=== PATIENT | female | born 1960 | race Caucasian/White ===

== ENCOUNTER → 2017-01-01 | Outpatient (CLI) | payer BC ==
--- NOTE | 2017-01-01 15:06 | CT ---
EXAM DESCRIPTION: CT abdomen and pelvis without contrast CLINICAL HISTORY: Abdomen pain COMPARISON: None Available. TECHNIQUE: Noncontrast spiral CT with coronal and sagittal reformatted images. This exam was performed according to our departmental dose-optimization program, which includes automated exposure control, adjustment of the mA and/or kV according to patient size and/or use of iterative reconstruction technique. FINDINGS: Visualized lung bases are clear. Heart size is normal No abnormality of the liver or gallbladder. No biliary duct dilation Spleen, pancreas, and adrenal glands are normal 1 to 2 mm nonobstructing calculus lower pole right kidney. No other renal, ureteral, or bladder calculus. Numerous phleboliths in the pelvis. No pelvic soft tissue mass lesion, adenopathy or free fluid. Moderate amount of stool in the colon. No mass lesion or diagnostic inflammatory process seen in the stomach, small or large intestine Omentum, small bowel mesentery and retroperitoneum show no mass or adenopathy No acute bony abnormality. IMPRESSION: No mass or adenopathy in the abdomen or pelvis 1-2 mm nonobstructing calculus lower pole right kidney. No other renal stone disease No diagnostic inflammatory process seen in the abdomen or pelvis Electronically signed by: Khoi Estes MD 01/01/2017 3:05 PM CDT
== END | disposition home or self-care (01) ==
LOC: CT 09:30
PROVIDERS: ATTEND Family Medicine
DX: R10.84 Generalized abdominal pain (principal)

== ENCOUNTER → 2017-02-05 | Outpatient (CLI) | payer BC | END | disposition home or self-care (01) | LOC: GMAH 16:27 | PROVIDERS: ATTEND Family Medicine | DX: N30.00 Acute cystitis without hematuria (principal) ==

== ENCOUNTER → 2017-08-11 | Outpatient (CLI) | payer BC, OTHER, SELFPAY ==
--- NOTE | 2017-08-12 12:14 | CT ---
EXAM DESCRIPTION: Abdoment/Pelvis w/o Contrast: Computed Tomography. CLINICAL HISTORY: GENERALIZED ABD PN COMPARISON: CT abdomen and pelvis 01/01/2017. TECHNIQUE: Spiral-axial scans 5.0 mm intervals through the abdomen and pelvis without oral or IV contrast. Coronal and sagittal 2.0 mm reconstructions. Total Exam DLP: 410.94 mGy-cm. This exam was performed according to our departmental CT dose-optimization program which includes automated exposure control, adjustment of the mA and/or kV according to patient size and/or use of iterative reconstruction technique; to reduce radiation dose to as low as reasonably achievable (ALARA). FINDINGS: Lung bases and pleura: Negative. Liver, stomach, spleen, and adrenal glands: Evaluation of soft tissue structures is limited due to lack of IV contrast. Long axis right lobe liver 22.7 cm. Normal density. Stomach unremarkable. Other solid organs negative. Pancreas, Gallbladder, and Ducts: Gallbladder visualized. Heterogeneous internal density. No duct dilation. Pancreas displaced inferiorly by liver no gross abnormalities. Kidneys and Ureters: Unremarkable except for inferior displacement of the right kidney by the enlarged liver. Mesentery: Generalized increased density in the mid to lower peritoneal cavity. No free fluid or free air. Aorta: Normal outer caliber. Small Bowel: Intermittent segments of fluid and gas but no significant air-fluid levels. Terminal Ileum/Cecum: Normal caliber of the TI with fecal matter causing minimal cecal distention. Appendix not seen. Minimal increased mesenteric density as described above. Colon: Intermittent gas and fecal material with multiple diverticula in the sigmoid colon which is moderately redundant. Also increased density of fat around the inferior sigmoid colon, in the region of the posterior pelvis posterior and superior to the urinary bladder. Pelvic Organs: Vaginal cuff negative. Multiple calcifications. Distention of the urinary bladder with no radiodense stones. No significant amount of fluid in the cul-de-sac. Spine and Bony Pelvis: Spondylosis L1-2 and canal narrowing. No bone destruction. Subchondral cysts in the inferior left SI joint. Abdominal Wall/Back Soft Tissues: Negative. IMPRESSION: 1. Sigmoid is very redundant with diverticulosis. Because of increased density of the fat around the distal sigmoid, posterior and superior to urinary bladder, diverticulitis is suspected, though this would be an unusual location (coronal sequence 602, images 91-101; sagittal sequence 601: Images 93-106). The mesentery was less dense on the prior study. Vague increased density in the mesentery in the peritoneum of the abdomen and upper pelvis and around the distal sigmoid colon above the cul-de-sac. This could indicate a nonspecific small bowel or colonic inflammatory process, or be normal for this patient. Mesentery seen slightly less dense on the prior study. No small bowel obstruction. No free intraperitoneal air or free fluid. Consider follow-up study with IV and oral contrast if these findings are discordant with clinical findings. 2. Heterogeneous density in the gallbladder could represent stones or sludge. If hepatobiliary function is questionable, consider right upper quadrant abdominal ultrasound. In addition, hepatomegaly which is stable since the prior study. 3. Small right renal calculus seen on the prior study is no longer visualized. 4. 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 Electronically signed by: Alan Pham MD 08/12/2017 12:13 PM CDT
== END ==
LOC: CT 13:26
PROVIDERS: ATTEND Family Medicine
DX: R10.84 Generalized abdominal pain (principal); K57.30 Diverticulosis of large intestine without perforation or abscess without bleeding

== ENCOUNTER 2017-08-18 11:20 | Inpatient (IN) | payer SELFPAY ==
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
[2017-08-18] MEDS ORDERED: SODIUM CHLORIDE 0.9% (FLUSH) 10 ML SYG IV PRN (12:22)
[2017-08-18] MEDS ORDERED: IV SET AND CAP CHANGE INJ INJ SCH (12:30)
[2017-08-18] MEDS ORDERED: metroNIDAZOLE IV PREMIX 500MG 100 ML IVPB ONE ×3 (13:03→19:20)
[2017-08-18] MEDS: metroNIDAZOLE IV PREMIX 500MG 500 MG in PREMIX BAG 1 BAG IVPB SCH ×2 (13:27→19:52)
[2017-08-18] MEDS: SODIUM CHLORIDE 0.9% 1000ML 1,000 ML IVS PRN (13:27)
[2017-08-18] MEDS ORDERED: PIPERACILLIN/TAZOBACTAM 3.375 GM in SODIUM CHLORIDE 0.9% 100ML 100 ML IVPB SCH (13:30)
[2017-08-18] MEDS ORDERED: ONDANSETRON INJ 4 MG/2 ML VIAL ONE (13:35)
[2017-08-18] MEDS: ONDANSETRON INJ 4 MG/2 ML VIAL IV PRN ×2 (13:43→19:51)
[2017-08-18] MEDS ORDERED: PIPERACILLIN/TAZOBACTAM 3.375 GM VIAL IVPB ONE ×3 (14:53→19:21)
[2017-08-18] MEDS ORDERED: SODIUM CHLORIDE 0.9% 100ML 100 ML IVPB ONE ×3 (14:53→19:21)
[2017-08-18] MEDS: PIPERACILLIN/TAZOBACTAM 3.375 GM in SODIUM CHLORIDE 0.9% 100ML 100 ML IVPB SCH ×2 (14:59→21:01)
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
[2017-08-18] MEDS ORDERED: fentaNYL CITRATE INJ 50 MCG/ML AMP IV ONE (19:41)
[2017-08-18] MEDS ORDERED: fentaNYL CITRATE INJ 50 MCG/ML AMP ONE (19:42)
[2017-08-19] MEDS: SODIUM CHLORIDE 0.9% 1000ML 1,000 ML IVS PRN ×2 (02:16→17:54)
[2017-08-19] MEDS: PIPERACILLIN/TAZOBACTAM 3.375 GM in SODIUM CHLORIDE 0.9% 100ML 100 ML IVPB SCH ×4 (02:16→21:06)
[2017-08-19] MEDS: fentaNYL CITRATE INJ 50 MCG/ML AMP IV PRN ×2 (03:39→21:06)
[2017-08-19] MEDS: metroNIDAZOLE IV PREMIX 500MG 500 MG in PREMIX BAG 1 BAG IVPB SCH ×3 (04:10→19:56)
[2017-08-19] MEDS: ONDANSETRON INJ 4 MG/2 ML VIAL IV PRN (04:17)
--- NOTE | 2017-08-19 07:02 | RAD ---
CLINICAL HISTORY:fever. :1960. Sex:Female. TECHNIQUE: Supine and upright views of the abdomen. There is no intestinal dilatation. There is no mass. There is no free air. There is no opaque calculus. Multiple phleboliths are noted within the pelvis. Skeletal structures are unremarkable. The visible lung bases are clear IMPRESSION: 1. No acute radiographic findings.. Electronically signed by: Miguel Vidales MD 08/19/2017 6:59 AM CDT Workstation: [id number]
--- NOTE | 2017-08-19 07:02 | RAD ---
EXAM: Single view chest. INDICATION: Fever. COMPARISON: Chest x-ray: None. FINDINGS: Cardiac silhouette: Unremarkable. Binta: Unremarkable. Lobar consolidation: None. Pleural effusion: None. Pneumothorax: None. Other: None. Bones: Unremarkable. Other: None. IMPRESSION: 1. No acute cardiopulmonary process. Electronically signed by: Miguel Vidales MD 08/19/2017 6:59 AM CDT Workstation: [id number]
[2017-08-19] MEDS ORDERED: PIPERACILLIN/TAZOBACTAM 3.375 GM VIAL IVPB ONE ×4 (07:47→19:12)
[2017-08-19] MEDS ORDERED: SODIUM CHLORIDE 0.9% 100ML 100 ML IVPB ONE ×4 (07:48→19:12)
[2017-08-19] MEDS ORDERED: metroNIDAZOLE IV PREMIX 500MG 100 ML IVPB ONE ×3 (07:48→19:12)
[2017-08-19] MEDS ORDERED: MAGNESIUM HYDROXIDE 30 ML UD PO ONE (09:07)
[2017-08-19] MEDS ORDERED: PROMETHAZINE HCL INJ 25 MG/ML VIAL ONE (09:24)
[2017-08-19] MEDS ORDERED: SODIUM CHLORIDE 0.9% 50ML 50 ML ONE (09:24)
[2017-08-19] MEDS: PROMETHAZINE HCL INJ 12.5 MG in SODIUM CHLORIDE 0.9% 50ML 50 ML IVPB PRN (09:30)
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
[2017-08-20] MEDS ORDERED: SODIUM CHLORIDE 0.9% 50ML 50 ML ONE (00:47)
[2017-08-20] MEDS ORDERED: PROMETHAZINE HCL INJ 25 MG/ML VIAL ONE (00:47)
[2017-08-20] MEDS: PROMETHAZINE HCL INJ 12.5 MG in SODIUM CHLORIDE 0.9% 50ML 50 ML IVPB PRN (00:50)
[2017-08-20] MEDS: PIPERACILLIN/TAZOBACTAM 3.375 GM in SODIUM CHLORIDE 0.9% 100ML 100 ML IVPB SCH ×4 (02:19→20:58)
[2017-08-20] MEDS ORDERED: SODIUM CHLORIDE 0.9% 100ML 100 ML IVPB ONE ×4 (02:22→19:14)
[2017-08-20] MEDS ORDERED: PIPERACILLIN/TAZOBACTAM 3.375 GM VIAL IVPB ONE ×4 (02:22→19:14)
[2017-08-20] MEDS: metroNIDAZOLE IV PREMIX 500MG 500 MG in PREMIX BAG 1 BAG IVPB SCH ×3 (04:00→19:56)
[2017-08-20] MEDS: fentaNYL CITRATE INJ 50 MCG/ML AMP IV PRN (05:27)
[2017-08-20] MEDS: ONDANSETRON INJ 4 MG/2 ML VIAL IV PRN (08:30)
[2017-08-20] MEDS ORDERED: SODIUM CHLORIDE 0.9% 1000ML 1,000 ML ONE (09:08)
[2017-08-20] MEDS: SODIUM CHLORIDE 0.9% 1000ML 1,000 ML IVS PRN (09:16)
--- NOTE | 2017-08-20 13:25 | PN ---
SUPERVISING PHYSICIAN: Wilber Nieto MD DATE: 08/20/17 SUBJECTIVE: Ms. Salinas complains of increased pain today. She got a dose of Milk of Magnesia and actually had a bowel movement, but states she is feeling increased pain in the left lower quadrant. No significant nausea or vomiting. OBJECTIVE: VITAL SIGNS: Blood pressure 111/71. Heart rate 74. Respiratory rate 18. Temperature 98.6. O2 saturation 99%. GENERAL: Ms. Salinas is a 56-year-old female is not in any current distress and at this time. NEUROLOGIC: Alert and oriented. LUNGS: Clear to auscultation bilaterally. CARDIOVASCULAR: Regular rate and rhythm. Normal S1, S2. ABDOMEN: Still soft. Positive bowel sounds. She complains of left lower quadrant tender to palpation. GENITOURINARY: Deferred. EXTREMITIES: Lower extremities with no edema. Capillary refill is less than 2 seconds. LABORATORY: Normal white count. Hemoglobin 12.5. Chemistry pretty much unremarkable. ASSESSMENT: 1. Left lower quadrant abdominal pain with presumed diverticulitis. 2. History of irritable bowel syndrome. 3. Migraine. 4. Possible constipation. PLAN: Her migraine is improved since yesterday. Concern with the worsening left lower quadrant pain. Dr. Billingsley has evaluated the patient as well and he is ordering more Milk of Magnesia as well as MiraLAX. We will continue her antibiotics for now. At this point, I am going to stop her intravenous fluids because she is taking liquid diet well. I am not going to order any repeat labs because she has consistently had normal chemistry as well as CBC since admission. We will reexamine tomorrow and continue to discuss with Dr. Billingsley on further action. #[id number] [facility]
[2017-08-20] MEDS ORDERED: metroNIDAZOLE IV PREMIX 500MG 100 ML IVPB ONE ×3 (13:26→19:13)
[2017-08-20] MEDS ORDERED: MAGNESIUM HYDROXIDE 30 ML UD ONE (13:28)
[2017-08-20] MEDS: MAGNESIUM HYDROXIDE 30 ML UD PO ONE ×3 (13:32→16:27)
[2017-08-20] MEDS: POLYETHYLENE GLYCOL 3350 17 GM PCKT PO SCH ×3 (13:32→20:58)
[2017-08-20] MEDS: KETOROLAC TROMETHAMINE INJ 30 MG/ML VIAL IV SCH (17:15)
[2017-08-21] MEDS ORDERED: SODIUM CHLORIDE 0.9% 1000ML 1,000 ML ONE (00:44)
[2017-08-21] MEDS: KETOROLAC TROMETHAMINE INJ 30 MG/ML VIAL IV SCH ×2 (01:03→09:13)
[2017-08-21] MEDS: PIPERACILLIN/TAZOBACTAM 3.375 GM in SODIUM CHLORIDE 0.9% 100ML 100 ML IVPB SCH ×2 (02:03→08:24)
[2017-08-21] MEDS ORDERED: PROMETHAZINE HCL INJ 25 MG/ML VIAL ONE (03:15)
[2017-08-21] MEDS ORDERED: SODIUM CHLORIDE 0.9% 50ML 50 ML ONE (03:15)
[2017-08-21] MEDS: PROMETHAZINE HCL INJ 12.5 MG in SODIUM CHLORIDE 0.9% 50ML 50 ML IVPB PRN (03:19)
[2017-08-21] MEDS: metroNIDAZOLE IV PREMIX 500MG 500 MG in PREMIX BAG 1 BAG IVPB SCH (04:50)
[2017-08-21] MEDS ORDERED: metroNIDAZOLE IV PREMIX 500MG 0 ML IVPB ONE (07:47)
[2017-08-21] MEDS ORDERED: SODIUM CHLORIDE 0.9% 100ML 100 ML IVPB ONE (07:47)
[2017-08-21] MEDS ORDERED: PIPERACILLIN/TAZOBACTAM 3.375 GM VIAL IVPB ONE (07:47)
[2017-08-21 09:05] VITALS: O2SAT 98
[2017-08-21] MEDS: POLYETHYLENE GLYCOL 3350 17 GM PCKT PO SCH (09:13)
[2017-08-21 09:41] VITALS: BP 117/76; TEMP 97.7
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
== END 2017-08-21 10:46 | disposition home or self-care (01) | DRG 392 ==
LOC: MS 11:20
PROVIDERS: ADMIT Nurse Practitioner; ATTEND Emergency Medicine
DX: K57.32 Diverticulitis of large intestine without perforation or abscess without bleeding (principal); K58.9 Irritable bowel syndrome, unspecified; K64.9 Unspecified hemorrhoids; G43.909 Migraine, unspecified, not intractable, without status migrainosus; K59.09 Other constipation; Z87.820 Personal history of traumatic brain injury; Z80.1 Family history of malignant neoplasm of trachea, bronchus and lung; Z88.5 Allergy status to narcotic agent

== ENCOUNTER 2018-08-24 12:37 | Emergency (ER) | payer SELFPAY ==
[2018-08-24 12:59] VITALS: TEMP 100.6
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
[2018-08-24] MEDS ORDERED: KETOROLAC TROMETHAMINE INJ 30 MG/ML VIAL IV ONE (13:16)
[2018-08-24] MEDS ORDERED: PROCHLORPERAZINE INJ 10 MG/2 ML VIAL IV ONE (13:16)
[2018-08-24] MEDS ORDERED: LACTATED RINGERS 1,000 ML IVS ONE (13:16)
--- NOTE | 2018-08-24 14:45 | CT ---
EXAM DESCRIPTION: Abdomen/Pelvis w/Contrast CLINICAL HISTORY: abdominal pain COMPARISON: August 11, 2017 TECHNIQUE: Postcontrast CT images of the abdomen and pelvis are obtained using standard imaging protocol. This exam was performed according to our departmental dose-optimization program, which includes automated exposure control, adjustment of the mA and/or kV according to patient size and/or use of iterative reconstruction technique . FINDINGS: Visualized lung bases show no acute findings. Small hiatal hernia is noted. Mild wall thickening at the gastroesophageal junction is noted. The liver, spleen, pancreas, adrenal glands, and gallbladder are unremarkable. Abdominal vasculature is unremarkable. No nephrolithiasis. Less than 1 cm fluid attenuation cortical cysts are seen. No ureteral calcification or obstruction is seen. Urinary bladder distended and unremarkable. Surgical absence of the uterus is noted. The ovaries are not identified. The appendix is small and unremarkable. Stomach is contracted and unremarkable. No small bowel obstruction or bowel wall thickening is seen. Colon is mostly decompressed with mild diffuse wall thickening similar to previous exam primarily in the descending to sigmoid region.. Mild scattered diverticuli of the colon are seen without associated inflammatory changes or fluid collections. Osseous structures show no aggressive bony lesions. IMPRESSION: Small hiatal hernia seen. No acute findings on CT of the abdomen and pelvis. Colon diverticulosis without CT evidence of diverticulitis. Mild diffuse bowel wall thickening of the colon is seen probably secondary to poor distention of the colon especially in the rectosigmoid region versus early findings of nonspecific colitis. No surrounding fat stranding or inflammatory changes are seen.. Electronically signed by: Malcolm Mays MD 08/24/2018 2:42 PM CDT
[2018-08-24] MEDS ORDERED: metroNIDAZOLE 500 MG TAB PO ONE (15:15)
[2018-08-24] MEDS ORDERED: CEPHALEXIN MONOHYDRATE 500 MG CAP PO ONE (15:15)
[2018-08-24 15:56] VITALS: BP 109/69; O2SAT 94
== END 2018-08-24 15:54 | disposition home or self-care (01) ==
LOC: ER 12:37
DX: K52.9 Noninfective gastroenteritis and colitis, unspecified (principal); K58.9 Irritable bowel syndrome, unspecified; F32.9 Major depressive disorder, single episode, unspecified; Z87.19 Personal history of other diseases of the digestive system
CPT/HCPCS: 74177; 80053; 81001; 82150; 82550; 82553; 83605; 83690; 84484; 85025; J0780; J1885; J7120

== ENCOUNTER 2018-09-07 18:48 | Inpatient (IN) | payer SELFPAY ==
[2018-09-07] MEDS ORDERED: SODIUM CHLORIDE 0.9% (FLUSH) 10 ML SYG IV PRN (19:38)
[2018-09-07] MEDS ORDERED: SODIUM CHLORIDE 0.9% 1000ML 1,000 ML IVS PRN (19:38)
[2018-09-07] MEDS ORDERED: ONDANSETRON INJ 4 MG/2 ML VIAL IV ONE (19:38)
[2018-09-07] MEDS ORDERED: fentaNYL CITRATE INJ 50 MCG/ML AMP IV ONE (19:39)
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
--- NOTE | 2018-09-07 20:39 | CT ---
PROCEDURE: Abdomen/Pelvis w/Contrast CLINICAL HISTORY: 57 years Female WORSENING ABD TENDERNESS, ELEVATED WBC TECHNIQUE: Contiguous axial images obtained through the abdomen and pelvis following the administration of IV contrast. Coronal and sagittal reformatted images provided. This CT exam was performed according to our departmental dose-optimization program, which includes one or more of the following dose reduction techniques: automated exposure control, adjustment of the mA and/or kV according to patient size, and/or use of iterative reconstruction technique. COMPARISON: Comparison is made to the prior examination dated 08/24/2018. FINDINGS: And seen is a mild to moderate pancolitis, most pronounced distally. No visualized gastric or small bowel inflammation. Normal appendix. No bowel obstruction, pneumatosis, free intraperitoneal air, abscess, or ascites. There is stable enlargement of the liver without focal lesion. The biliary tree, gallbladder, pancreas, spleen, adrenal glands, and urinary bladder are normal. Tiny bilateral renal cysts again noted. Prior hysterectomy. No acute fracture or aggressive osseous lesion. No abdominal aortic aneurysm or retroperitoneal hemorrhage. IMPRESSION: Mild to moderate pancolitis, likely infectious. No bowel obstruction or perforation. Electronically signed by: Grecia Singh MD 09/07/2018 8:36 PM CDT
[2018-09-07] MEDS ORDERED: PIPERACILLIN/TAZOBACTAM 3.375 GM in SODIUM CHLORIDE 0.9% 100ML 100 ML IVPB ONE (20:44)
[2018-09-07] MEDS ORDERED: PIPERACILLIN/TAZOBACTAM 3.375 GM VIAL IVPB ONE ×2 (20:48→23:56)
[2018-09-07] MEDS ORDERED: SODIUM CHLORIDE 0.9% 100ML 100 ML IVPB ONE (20:48)
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
[2018-09-07] MEDS ORDERED: ACETAMINOPHEN 500 MG TAB ONE (22:04)
[2018-09-07] MEDS ORDERED: ACETAMINOPHEN 500 MG TAB PO ONE (22:09)
[2018-09-07] MEDS ORDERED: SODIUM CHLORIDE 0.9% 1000ML 1,000 ML IVS ONE (22:57)
[2018-09-07] MEDS ORDERED: metroNIDAZOLE IV PREMIX 500MG 100 ML IVPB ONE (23:03)
[2018-09-07] MEDS: IV SET AND CAP CHANGE INJ INJ SCH (23:06)
[2018-09-07] MEDS: metroNIDAZOLE IV PREMIX 500MG 500 MG in PREMIX BAG 1 BAG IVPB SCH (23:19)
[2018-09-07] MEDS: HYDROmorphone HCL INJ 2 MG/ML VIAL IV PRN (23:23)
[2018-09-07] MEDS ORDERED: SODIUM CHL 0.9% 100ML MINI-BAG 100 ML IVPB ONE (23:57)
[2018-09-08] MEDS: PIPERACILLIN/TAZOBACTAM 3.375 GM in SODIUM CHLORIDE 0.9% 100ML 100 ML IVPB SCH ×3 (00:54→17:02)
[2018-09-08] MEDS: HYDROmorphone HCL INJ 2 MG/ML VIAL IV PRN ×3 (04:50→23:58)
[2018-09-08] MEDS ORDERED: metroNIDAZOLE IV PREMIX 500MG 100 ML IVPB ONE ×3 (05:53→20:08)
[2018-09-08] MEDS: ONDANSETRON INJ 4 MG/2 ML VIAL IV PRN (06:04)
[2018-09-08] MEDS: metroNIDAZOLE IV PREMIX 500MG 500 MG in PREMIX BAG 1 BAG IVPB SCH ×3 (06:34→22:43)
--- NOTE | 2018-09-08 08:46 | RAD ---
EXAM DESCRIPTION: Abdomen Flat Upright CLINICAL HISTORY: 57 years Female, pancolitis COMPARISON: August 19, 2017 FINDINGS: Two views of the abdomen demonstrate clear lung bases without free abdominal air. No significant basilar lung disease noted. The supine image demonstrates a contrast distended bladder with normal contour. The bowel gas pattern is normal. Mural or air within the portal or biliary system is not apparent. No evidence of obstruction or significant ileus is seen. Significant thumbprinting or abnormal air-fluid levels are not apparent. IMPRESSION: Essentially normal abdomen two views with contrast distended normal-appearing bladder. Electronically signed by: Khoi Gómez MD 09/08/2018 8:43 AM CDT
[2018-09-08] MEDS ORDERED: PROMETHAZINE HCL INJ 25 MG/ML VIAL ONE ×2 (09:42→17:40)
[2018-09-08] MEDS ORDERED: PIPERACILLIN/TAZOBACTAM 3.375 GM VIAL IVPB ONE ×3 (09:42→23:50)
[2018-09-08] MEDS ORDERED: SODIUM CHLORIDE 0.9% 50ML 50 ML ONE ×2 (09:43→17:40)
[2018-09-08] MEDS ORDERED: SODIUM CHLORIDE 0.9% 100ML 100 ML IVPB ONE ×3 (09:43→23:51)
[2018-09-08] MEDS: PROMETHAZINE HCL INJ 25 MG in SODIUM CHLORIDE 0.9% 50ML 50 ML IVPB PRN ×2 (10:18→18:01)
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
[2018-09-08] MEDS: VANCOMYCIN ORAL LIQUID 2,000 MG/80 ML BOTTLE PO SCH ×2 (15:50→18:30)
[2018-09-08] MEDS: KCL 20MEQ/D5NS 1,000 ML IVS PRN ×2 (15:50→23:04)
[2018-09-08] MEDS ORDERED: ENOXAPARIN SODIUM 40 MG/0.4 ML SYG SUBCU ONE (22:08)
[2018-09-09] MEDS ORDERED: metroNIDAZOLE IV PREMIX 500MG 100 ML IVPB ONE ×3 (01:09→19:28)
[2018-09-09] MEDS: PIPERACILLIN/TAZOBACTAM 3.375 GM in SODIUM CHLORIDE 0.9% 100ML 100 ML IVPB SCH ×3 (01:13→16:48)
[2018-09-09] MEDS ORDERED: PROMETHAZINE HCL INJ 25 MG/ML VIAL ONE ×3 (05:15→20:11)
[2018-09-09] MEDS ORDERED: SODIUM CHLORIDE 0.9% 50ML 50 ML ONE ×3 (05:16→20:11)
[2018-09-09] MEDS: KCL 20MEQ/D5NS 1,000 ML IVS PRN ×3 (05:25→19:52)
[2018-09-09] MEDS: PROMETHAZINE HCL INJ 25 MG in SODIUM CHLORIDE 0.9% 50ML 50 ML IVPB PRN ×3 (05:28→20:14)
[2018-09-09] MEDS: HYDROmorphone HCL INJ 2 MG/ML VIAL IV PRN ×3 (05:32→20:00)
[2018-09-09] MEDS: VANCOMYCIN ORAL LIQUID 2,000 MG/80 ML BOTTLE PO SCH ×4 (05:41→17:53)
[2018-09-09] MEDS: metroNIDAZOLE IV PREMIX 500MG 500 MG in PREMIX BAG 1 BAG IVPB SCH ×3 (06:43→23:07)
[2018-09-09] MEDS ORDERED: PIPERACILLIN/TAZOBACTAM 3.375 GM VIAL IVPB ONE ×2 (07:28→16:39)
[2018-09-09] MEDS ORDERED: SODIUM CHLORIDE 0.9% 100ML 100 ML IVPB ONE ×2 (07:29→16:40)
--- NOTE | 2018-09-09 08:14 | PN ---
SUPERVISING PHYSICIAN: Prakash Montaño MD DATE: 09/08/18 SUBJECTIVE: The patient seems to be doing a little better this morning although she continues with diffuse abdominal pain and has required some Phenergan. Her white count is normalized. She has been afebrile. She did have a positive C. difficile and has been started on oral vancomycin. She was seen in consultation by Dr. Billingsley. No signs or symptoms of any complications other than continued diarrhea, but she is responding well to treatment at this point. OBJECTIVE: VITAL SIGNS: Temperature 98.2. Pulse 70. Blood pressure 106/68. Respirations 16. Oxygen saturation 98% on room air. I&Os show negative balance of 999 with 2551 in and 1250 out. Weight 58.0 kg. GENERAL: The patient is resting comfortably. She is alert. CHEST: Lungs clear to auscultation. HEART: Regular rate and rhythm. ABDOMEN: Diffusely tenderness, but no rebound tenderness. No guarding. No peritoneal signs. Bowel sounds are active. EXTREMITIES: No cyanosis, clubbing or edema. NEUROLOGIC: Alert and oriented times three. LABORATORY: White count now is normal to 9,700, hemoglobin 12.1, hematocrit 35.7, platelet count 258,000. Differential continues to show a left shift. Chemistries show now normalized electrolytes with sodium 137. Carbon dioxide continues to be low at 17 with BUN 10. Anion gap is now normalized to 15. Creatinine 0.66, calcium 7.7. Liver functions within normal limits. Stool occult blood was positive. C. difficile toxin by PCR is pending. MICROBIOLOGY: C. difficile toxin A and B is positive for antigen, negative for toxin. Stool leukocytes were positive and stool culture pending. RADIOLOGY: Abdominal x-ray this morning per radiologic interpretation shows essentially normal abdomen on two views with contrast distending a normal appearing bladder. ASSESSMENT: 1. Clostridioides difficile colitis secondary to failed treatment for possible diverticulitis as an outpatient with probable sigmoid stricture, both being followed by Dr. Billingsley and having been seen by Dr. Suggs. 2. Diverticulosis with a history of diverticulitis. 3. History of ulcerative colitis followed by Dr. Suggs. 4. 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 5. History of anxiety and bipolar disorder. PLAN: The patient has been seen by Dr. Suggs, however, he is not going to be here this week. Dr. Billingsley has seen the patient in consultation. The patient seems to be making good progress clinically. I have started her on vancomycin 125 mg orally. She will need a 10-day course. She will continue on Unasyn infusion tonight as well as Flagyl. We will anticipate hopefully being able to transition her to a clear liquid diet tomorrow depending on how she presents clinically. Again, Dr. Billingsley is following the patient in consultation. Our anticipation is that we will hopefully be able to discharge by Friday on a course of vancomycin orally for treatment of the C. difficile colitis. She will remain on DVT prophylaxis. She is on pain management with Dilaudid as needed, Phenergan for antiemetics. Until she can transition to outpatient management, we will continue to monitor and treat as needed. [facility][id number] [facility]
[2018-09-09] MEDS: SODIUM CHLORIDE 0.9% (FLUSH) 10 ML SYG IV PRN ×3 (09:21→16:49)
--- NOTE | 2018-09-09 10:23 | PN ---
SUPERVISING PHYSICIAN: Prakash Montaño MD DATE: 09/09/18 SUBJECTIVE: The patient is lying in bed. She says she feels better, but continues to be queasy. She actually had emesis earlier, but once they started the Phenergan, she has only been mildly nauseated. Otherwise, she denies any chest pain, shortness of breath, constipation. OBJECTIVE: VITAL SIGNS: Temperature 98.4. Heart rate 84. Blood pressure 98/62. Oxygen saturation 93% on room air. RESPIRATORY: Essentially clear to auscultation bilaterally. CARDIAC: Regular rate and rhythm. GASTROINTESTINAL: Abdomen is soft. It is diffusely, but mildly tender. Bowel sounds are positive. NEUROLOGIC: Awake, alert and oriented times three. LABORATORY: Stool culture is pending. All other labs and films have been reviewed via the EMR. ASSESSMENT: 1. Leukocytosis, she was febrile at 101 and hypotensive. She is Clostridioides antigen positive. She is now on oral vancomycin and Zosyn. 2. Diverticulosis with a history of diverticulitis. 3. History of ulcerative colitis followed by Dr. Suggs. 4. 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 5. History of anxiety and bipolar disorder. PLAN: We will continue present supportive care. Dr. Billingsley is following the patient. Due to the patient's continued complaints of nausea, we will hold on advancing her diet although I will give her a few ice chips. If she tolerates that well, we will advance her diet to clear liquids. We should be able to discontinue the Zosyn in the next day or two, but continue for 10 to 14 total days of oral vancomycin. We will continue with her fluids as well as her pain medications. She will need to followup with Dr. Suggs, anti tank missileman, at some point as well as Dr. Sarkar, her primary care physician. I have ordered lab for in the morning. We will continue to monitor the patient closely and follow as needed. [facility][id number] [facility]
[2018-09-09] MEDS ORDERED: INSULIN, REG.(HUMAN) 100 U/ML VIAL ONE (11:33)
[2018-09-09] MEDS ORDERED: ENOXAPARIN SODIUM 40 MG/0.4 ML SYG SUBCU ONE (19:28)
[2018-09-09] MEDS: ONDANSETRON INJ 4 MG/2 ML VIAL IV PRN ×2 (19:55)
[2018-09-09] MEDS: ENOXAPARIN SODIUM 40 MG/0.4 ML SYG SUBCU SCH (21:20)
[2018-09-10] MEDS ORDERED: SODIUM CHLORIDE 0.9% 100ML 100 ML IVPB ONE ×3 (00:11→16:37)
[2018-09-10] MEDS ORDERED: PIPERACILLIN/TAZOBACTAM 3.375 GM VIAL IVPB ONE ×3 (00:11→16:37)
[2018-09-10] MEDS: VANCOMYCIN ORAL LIQUID 2,000 MG/80 ML BOTTLE PO SCH ×4 (00:17→18:07)
[2018-09-10] MEDS: PIPERACILLIN/TAZOBACTAM 3.375 GM in SODIUM CHLORIDE 0.9% 100ML 100 ML IVPB SCH ×3 (01:30→17:01)
[2018-09-10] MEDS: KCL 20MEQ/D5NS 1,000 ML IVS PRN ×2 (02:13→14:57)
[2018-09-10] MEDS ORDERED: PROMETHAZINE HCL INJ 25 MG/ML VIAL ONE ×3 (03:02→17:53)
[2018-09-10] MEDS ORDERED: SODIUM CHLORIDE 0.9% 50ML 50 ML ONE ×3 (03:03→17:54)
[2018-09-10] MEDS: HYDROmorphone HCL INJ 2 MG/ML VIAL IV PRN ×2 (03:08→08:20)
[2018-09-10] MEDS: PROMETHAZINE HCL INJ 25 MG in SODIUM CHLORIDE 0.9% 50ML 50 ML IVPB PRN ×3 (03:08→18:07)
[2018-09-10] MEDS ORDERED: metroNIDAZOLE IV PREMIX 500MG 100 ML IVPB ONE ×3 (06:17→19:42)
[2018-09-10] MEDS: metroNIDAZOLE IV PREMIX 500MG 500 MG in PREMIX BAG 1 BAG IVPB SCH ×3 (06:33→22:40)
[2018-09-10] MEDS: ENOXAPARIN SODIUM 40 MG/0.4 ML SYG SUBCU SCH (09:41)
--- NOTE | 2018-09-10 10:08 | PN ---
SUPERVISING PHYSICIAN: Prakash Montaño MD DATE: 09/10/18 SUBJECTIVE: The patient is lying in bed with her eyes closed. She awakens easily. She continues complaints of extreme abdominal tenderness as well as some mild abdominal pain, but it has improved greatly since yesterday. She would like to try some clear liquids. We discussed her discharge planning. She denies any chest pain, shortness of breath, diarrhea or constipation. OBJECTIVE: VITAL SIGNS: Temperature 99. Heart rate 76. Blood pressure 99/63. Respiratory rate 18. Oxygen saturation 99% on room air. RESPIRATORY: Essentially clear to auscultation bilaterally. CARDIAC: Regular rate and rhythm. GASTROINTESTINAL: Abdomen is soft. It is mildly diffusely tender, but it is moderately tender on her left lower quadrant. There is no rebound tenderness or guarding. Bowel sounds are positive. NEUROLOGIC: Awake, alert and oriented times three. LABORATORY: Stool for occult blood is negative. Stool culture is still pending. All other labs and films have been reviewed via the EMR. ASSESSMENT: 1. Leukocytosis, she was febrile at 101 and hypotensive on admission. She is Clostridioides difficile antigen positive. She is now on oral vancomycin and IV Zosyn. 2. Diverticulosis with a history of diverticulitis. 3. History of ulcerative colitis followed by Dr. Suggs. 4. 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 5. History of anxiety and bipolar disorder. PLAN: We will continue present supportive care. I will start her on clear liquid today and see how she tolerates that. Hopefully, if she tolerates that without any issues, I will restart her home medications as well as put her on some Align. I will also defer additional orders to Dr. Billingsley, general surgeon, who is following the patient on this case. We will continue to monitor the patient closely and follow as needed. [facility][id number] [facility]
[2018-09-10] MEDS: BIFIDOBACTERIUM INFANTIS 4 MG CAP PO SCH (10:45)
[2018-09-11] MEDS: IV SET AND CAP CHANGE INJ INJ SCH (00:17)
[2018-09-11] MEDS ORDERED: PIPERACILLIN/TAZOBACTAM 3.375 GM VIAL IVPB ONE ×2 (00:19→08:39)
[2018-09-11] MEDS ORDERED: SODIUM CHLORIDE 0.9% 100ML 100 ML IVPB ONE ×2 (00:19→08:39)
[2018-09-11] MEDS: VANCOMYCIN ORAL LIQUID 2,000 MG/80 ML BOTTLE PO SCH ×4 (00:26→18:00)
[2018-09-11] MEDS: PIPERACILLIN/TAZOBACTAM 3.375 GM in SODIUM CHLORIDE 0.9% 100ML 100 ML IVPB SCH ×2 (01:20→08:54)
[2018-09-11] MEDS: KCL 20MEQ/D5NS 1,000 ML IVS PRN (03:57)
[2018-09-11] MEDS ORDERED: metroNIDAZOLE IV PREMIX 500MG 100 ML IVPB ONE ×3 (06:25→19:47)
[2018-09-11] MEDS: metroNIDAZOLE IV PREMIX 500MG 500 MG in PREMIX BAG 1 BAG IVPB SCH ×3 (06:29→22:51)
[2018-09-11] MEDS: ENOXAPARIN SODIUM 40 MG/0.4 ML SYG SUBCU SCH (08:54)
[2018-09-11] MEDS: BIFIDOBACTERIUM INFANTIS 4 MG CAP PO SCH (08:54)
--- NOTE | 2018-09-11 19:21 | PN ---
DATE: 09/11/18 SUPERVISING PHYSICIAN: Hema Montaño M.D. SUBJECTIVE: The patient is tolerating a clear liquid diet today. She notes that her pain is much less than previous days. She has had no shortness of breath. No diarrhea or constipation. OBJECTIVE: VITAL SIGNS: Temperature 98.2, pulse 62, blood pressure 119/78, respirations 16, satting 100% on room air. I's and O's show a negative balance of 950 with 1450 in, 2400 out. Weight 60.6 kg. CHEST: Lungs are clear to auscultation. HEART: Regular rate and rhythm. ABDOMEN: Soft but continues to be mildly diffusely tender. No rebound tenderness. No point tenderness. No peritoneal signs. No guarding. Bowel sounds are present. NEUROLOGIC: She is alert and oriented times three. LABORATORY: CBC today shows to be within normal limits with a white count 7,000. No left shift. Chemistry shows normal electrolytes, BUN is less than 5, creatinine 0.5. MICROBIOLOGY: Stool culture final result shows gram positive cocci. No other normal palak isolated. No pathological organisms isolated. Please see that full report for details. The Clostridium Difficile toxin PCR was positive. RADIOLOGY: No additional radiographic studies. ASSESSMENT: 1. Leukocytosis, she was febrile at 101 and hypotensive on admission. Clostridioides difficile antigen and toxin positive with the patient continuing to be on oral vancomycin, Flagyl and Zosyn showing good clinical response. 2. Diverticulosis with a history of diverticulitis. 3. History of ulcerative colitis followed by Dr. Suggs. 4. 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 5. History of anxiety and bipolar disorder. PLAN: We are going to continue with clear liquids today. Will stop the Zosyn but continue with oral vancomycin and parenteral Flagyl. I will saline lock her as she is taking good oral intake. Will resume the rest of her medications as appropriate. If she continues to improve clinically, will anticipate being able to discharge tomorrow. Until then continue to monitor and treat as needed. [facility][id number] [facility]
[2018-09-12] MEDS: VANCOMYCIN ORAL LIQUID 2,000 MG/80 ML BOTTLE PO SCH ×3 (00:06→08:00)
[2018-09-12] MEDS ORDERED: metroNIDAZOLE IV PREMIX 500MG 100 ML IVPB ONE (05:02)
[2018-09-12] MEDS: metroNIDAZOLE IV PREMIX 500MG 500 MG in PREMIX BAG 1 BAG IVPB SCH (06:34)
[2018-09-12] MEDS: ENOXAPARIN SODIUM 40 MG/0.4 ML SYG SUBCU SCH (09:17)
[2018-09-12] MEDS: BIFIDOBACTERIUM INFANTIS 4 MG CAP PO SCH (09:17)
[2018-09-12 11:34] VITALS: BP 129/89; TEMP 98.1; O2SAT 100
--- NOTE | 2018-09-22 10:35 | DS ---
SUPERVISING PHYSICIAN: Jesse Coppola MD ADMISSION DIAGNOSIS: 1. Acute abdominal pain, questionable diverticulitis versus pancolitis pending stool workup with the patient being on recent antibiotics for acute diverticulitis failing to respond to outpatient treatment measures. 2. Sepsis secondary to #1 with leukocytosis, febrile at 101 and hypotensive with concerns for possible infectious colitis, especially Clostridioides difficile colitis, again awaiting culture results with the patient having initiated on parenteral antibiotics to include Unasyn and Flagyl. 3. History of diverticulosis with a history of diverticulitis but no acute findings indicating diverticulitis at time of admission. 4. History of ulcerative colitis followed by Dr. Suggs. 5. 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 6. History of anxiety and bipolar disorder. DISCHARGE DIAGNOSIS: 1. Leukocytosis, she was febrile at 101 and hypotensive on admission. Clostridioides difficile antigen and toxin positive with the patient continuing to be on oral vancomycin, Flagyl and Zosyn showing good clinical response. 2. Diverticulosis with a history of diverticulitis. 3. History of ulcerative colitis followed by Dr. Suggs. 4. 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 5. History of anxiety and bipolar disorder. REASON FOR HOSPITALIZATION: Ms. Salinas is a 57 year-old female patient that presented to the Emergency Room last night complaining of diffuse abdominal pain. She had been in the [facility] 2 weeks previously and treated for acute episode of diverticulitis, started on Keflex and Flagyl. She reports that she had about 24 hours of symptom improvement, however progressively over the last week has worsened. She notes that prior to coming to the [facility]. [facility] she had a bloody mucous stool with some vomiting a couple of days previously. She is followed by Dr. Sarkar in the outpatient setting as well as Dr. Suggs for GI specialty. She has been on and off treatment for what was thought to be diverticulitis and been on multiple courses of Cipro and Flagyl. She was seen last by Dr. Suggs in September of 2017 in his office where she was diagnosed with dolichocolon with a history of recurrent diverticulitis. She had a colonoscopy attempted but was unable to complete due to the inability of being able to transverse the sigmoid colon due to strictures that were due to a previous hysterectomy and diverticulitis. At that time she was offered consideration for a possible sigmoidectomy and further left sided colectomy for the dolichocolon, and again repeat colonoscopy after the colon had reduced. She had no further workup other than starting on antibiotics and this most recent visit to the E. [facility] and one prior to in the last 2 weeks. She was denying any fever or chills. In the E. R[facility] her laboratory studies showed she had a leukocytosis of 17,900 with a left shift. H&H was showing 14.1 and 42.1. Liver functions were showing to be within normal limits as well as lipase. She had a CT of the abdomen and pelvis and per radiology interpretation, note was made of mild to moderate pancolitis likely infectious but no bowel obstruction or perforation was noted. Given her symptomatology and recent treatment for questionable diverticulitis and worsening symptoms, Dr. Robledo, [facility] physician, requested the patient be admitted for further evaluation and followup, and initiation of parenteral antibiotics with concerns for worsening diverticulitis having failed to respond to outpatient treatment measures. She was admitted in stable condition. Prior to admission she was started on Zosyn for empiric antibiotic coverage. MEDICAL CONSULTATION: Please see Dr. Billingsley's note. LABORATORY: White count on admission was 17,900. By discharge, it was 7,000. Differential resolved. Hemoglobin was stable at 13.5, hematocrit 39.6. Chemistries initially showed sodium 134, at discharge 140. Potassium was normal at 3.8 on both admission and discharge with anion gap slightly elevated on admission at 20, but normal at discharge at 12.8. Carbon dioxide was low at 18 and 17 and on day of discharge had normalized to 23. Creatinine was less than 5. Liver functions were all within normal limits. Lipase normal at 26. Urinalysis showed fredo-colored urine with trace of blood, small amount of bilirubin, otherwise within normal limits. She had one occult blood stool that was positive, one that was negative. Serology showed C. difficile by PCR pending. MICROBIOLOGY: Stool culture was pending at discharge. Stool leukocytes showed positive with C. difficile toxin A and B initially positive for antigen, negative for toxin with PCR pending. RADIOLOGY: CT of the abdomen and pelvis with IV contrast per radiologic interpretation showed mild to moderate camejo colitis likely infectious with no bowel obstruction or perforation noted. She also had an abdominal x-ray after admission which per radiologic interpretation showed essentially normal abdomen on two-views with contrast containing bladder. No additional studies were done. HOSPITAL COURSE: Ms. Salinas was admitted as noted for pancolitis. She was kept NPO, then advanced to clear liquids as tolerated. The patient was slow to progress regarding her symptomatology and was seen in consultation by Dr. Billingsley and treated with antibiotics with Levaquin and Flagyl. She was transitioned to oral vancomycin based on final culture results. She had good pain management and was showing stable hemoglobin and hematocrit. She was clinically felt well enough to continue with outpatient management. DISCHARGE PHYSICAL EXAMINATION: VITAL SIGNS: temperature 98.1. Pulse 64. Blood pressure 120/89. Respirations 18. Saturation 100%. GENERAL: The patient was resting comfortably and appeared to be in no acute distress. CHEST: Clear to auscultation. HEART: Regular rate and rhythm. ABDOMEN: Mild tenderness over the epigastrium, much improved from admission. EXTREMITIES: No cyanosis, clubbing or edema. NEUROLOGIC: Alert and oriented x3. PLAN: Ms. Salinas was discharged on 09/12/18 with instructions to followup with Dr. Billingsley, Dr. Sarkar and Dr. Suggs. She was to resume her medications as instructed and given warnings to return to the hospital should she have any worsening of her symptoms. Diet at discharge was soft liquid diet until seen in followup. Activity to increase as tolerated. PRESCRIPTIONS AT DISCHARGE: 1. Phenergan 25 mg q.4h. as needed, #15, no refills. 2. Vancomycin 125 mg q.6h., #40, no refills. 3. Align 4 mg daily, #30. 4. Flagyl 500 mg q.8h., #30, no refills. DISPOSITION: The patient was discharged to care of family members. CONDITION AT DISCHARGE: Stable and improving. [facility][id number] [facility]
== END 2018-09-12 12:15 | disposition home or self-care (01) | DRG 372 ==
LOC: ER 18:48 → MS 22:02
PROVIDERS: ADMIT Nurse Practitioner Family; ATTEND Nurse Practitioner Family
DX: A04.72 Enterocolitis due to Clostridium difficile, not specified as recurrent (principal); K51.00 Ulcerative (chronic) pancolitis without complications; I95.9 Hypotension, unspecified; K57.30 Diverticulosis of large intestine without perforation or abscess without bleeding; F41.9 Anxiety disorder, unspecified; F31.9 Bipolar disorder, unspecified; E86.0 Dehydration; Z88.5 Allergy status to narcotic agent; Z90.710 Acquired absence of both cervix and uterus; Z83.79 Family history of other diseases of the digestive system; Z79.891 Long term (current) use of opiate analgesic

== ENCOUNTER 2019-03-04 05:24 | Inpatient (IN) | payer OTHER ==
--- NOTE | 2019-03-01 14:54 | RAD ---
Procedure: XR CHEST 2 VIEWS Exam Date: 03/01/2019 Ordering Provider: Matthew Billingsley Clinical Indication: PREOP Comparison: 08/19/2017 Findings: Cardiomediastinal silhouette is within normal limits. No focal lung consolidation. No pleural effusion. No pneumothorax. No acute osseous abnormality. Impression: 1. No acute abnormality in the chest. Electronically signed by: Jaswinder Ferreira MD 03/01/2019 2:52 PM CDT
[2019-03-04] MEDS ORDERED: VECURONIUM BROMIDE 10 MG VIAL IV ONE (07:00)
[2019-03-04] MEDS ORDERED: PROPOFOL 200 MG/20 ML VIAL IV ONE (07:00)
[2019-03-04] MEDS ORDERED: WATER FOR INJ 10 ML VIAL INJ ONE (07:00)
[2019-03-04] MEDS ORDERED: raNITIdine HCL INJ 25 MG/ML VIAL ONE (07:00)
[2019-03-04] MEDS ORDERED: LIDOCAINE 1% 10 ML VIAL INJ ONE (07:00)
[2019-03-04] MEDS ORDERED: ePHEDrine SULF 50 MG/ML ONE (07:00)
[2019-03-04] MEDS ORDERED: DEXAMETHASONE INJ 10 MG/ML VIAL ONE (07:00)
[2019-03-04] MEDS ORDERED: LACTATED RINGERS 1,000 ML ONE (07:02)
[2019-03-04] MEDS ORDERED: cefOXitin SODIUM 2 GM INJ IVPB ONE ×3 (07:02→19:09)
[2019-03-04] MEDS ORDERED: SODIUM CHL 0.9% 50ML MIN-BAG+ 50 ML IVPB ONE ×3 (07:05→19:09)
[2019-03-04] MEDS ORDERED: MIDAZOLAM INJ 2 MG/2 ML VIAL ONE (08:04)
[2019-03-04] MEDS ORDERED: fentaNYL CITRATE INJ 50 MCG/ML AMP ONE (08:04)
[2019-03-04] MEDS ORDERED: KETAMINE HCL 100 MG/ML VIAL ONE (08:04)
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
[2019-03-04] MEDS ORDERED: ELECTROLYTE-A 1,000 ML IVS ONE ×2 (08:53→08:54)
[2019-03-04] MEDS ORDERED: SUGAMMADEX SODIUM 200 MG/2 ML VIAL IV ONE (09:10)
[2019-03-04] MEDS ORDERED: BUPIVACAINE 0.5% 30 ML VIAL INJ ONE (10:10)
[2019-03-04] MEDS: HYDROmorphone HCL INJ 2 MG/ML VIAL IV PRN ×6 (10:40→13:00)
[2019-03-04] MEDS: ONDANSETRON INJ 4 MG/2 ML VIAL IV PRN (10:58)
--- NOTE | 2019-03-04 11:02 | OP ---
DATE OF PROCEDURE: 03/04/19 PREOPERATIVE DIAGNOSIS: 1. Recurrent diverticulitis with proximal sigmoid and rectal stricture. POSTOPERATIVE DIAGNOSIS: 1. Recurrent diverticulitis with proximal sigmoid and rectal stricture. PROCEDURE: 1. Sigmoid colectomy with low anterior resection and anastomosis. SURGEON: Matthew Billingsley MD VETERINARY SURGERY TECHNOLOGIST: Wilber Pickett MD ANESTHESIA: General endotracheal anesthesia. INDICATION: The patient is a 58-year-old female who has had multiple episodes of diverticulitis. Workup has revealed a stricture with inability to pass a colonoscope. She continues to have pain. She was brought to the Surgical Suite today for colectomy after the risks, benefits and alternatives to the procedure were discussed and accepted. FINDINGS: There was significant diverticular disease in the sigmoid colon without any signs of acute diverticulitis. The remaining colon was essentially normal size without significant inflammatory or thickening identified. No other pathology was identified. PROCEDURE: After adequate general endotracheal anesthesia was obtained, the patient was prepped and draped in the usual sterile manner in the dorsolithotomy position. A surgical time-out was taken. At this time, a midline incision was made from just below the umbilicus to the pubis with a sharp knife. Dissection was carried down through the skin and subcutaneous tissue using electrocautery and blunt dissection. The fascia was divided in the midline with electrocautery. It was then elevated. The peritoneum was divided sharply and the peritoneum was opened for the length of the incision. Retractors were placed and the abdomen was inspected with the previously noted findings. At this point, there were a small number of adhesions to the left pelvic sidewall. These were lysed using electrocautery with care to identify the left ureter. When this was done, the colon was elevated and areas for distal transection in the pelvis were identified as was the proximal area. The colon was held elevated and the mesentery was divided using electrocautery, clamps and ligatures of 2 and 3-0 Vicryl. When this had been done, a pursestring device was used to divide the colon at the proximal area in the left colon. It was then placed on a sponge. The sizers were used to identify a 28 mm EEA. At this point, the distal line of resection was transected using the stapling device. The specimen was removed. The rectal stump was dropped into the rectum and after irrigation with a moist sponge placed over it. At this point, the 28 mm EEA anvil was obtained and it was tied in place in the proximal colon. When this was done, Dr. Pickett went to the rectum and first dilated the anus and rectum with a 25 and then 28 mm dilator. The endoscope was then introduced and opened just anterior to the staple line and brought through the colon wall. The plastic point was removed and then it was connected to the proximal anvil. It was then tightened, fired and released without difficulty. Dr. Pickett then used the proctoscope to dilate the colon at the anastomosis which was pinched closed proximally by . Saline was placed into the pelvis. There were no leaks, so the air and proctoscope were removed. The pelvis, left colon and left pericolic gutter were then irrigated with saline. Hemostasis was noted to be adequate. At this point, the small bowel, colon and omentum were placed back in position. A sponge was placed over the omentum along with a malleable retractor and the midline fascia was closed with a running #1 PDS double-stranded suture. When this was tightened and tied, the subcutaneous tissue was irrigated with saline. The subcutaneous tissue was loosely approximated with interrupted 3-0 Vicryl sutures and the skin edges were approximated with a skin stapler. Sterile pressure dressing was applied. An abdominal binder was applied. The patient was awakened and taken to the Recovery Room in good and stable condition. Estimated blood loss was less than 100 cc. Palacios catheter was left in place. #[id number] [facility]
[2019-03-04] MEDS ORDERED: KETOROLAC TROMETHAMINE INJ 30 MG/ML VIAL ONE (11:04)
[2019-03-04] MEDS ORDERED: SODIUM CHLORIDE 0.9% 100ML 100 ML IVPB ONE (11:13)
[2019-03-04] MEDS ORDERED: PROMETHAZINE HCL INJ 25 MG/ML VIAL ONE ×2 (11:13→20:30)
[2019-03-04] MEDS ORDERED: METOCLOPRAMIDE HCL INJ 10 MG/2 ML VIAL ONE (11:50)
[2019-03-04] MEDS ORDERED: HYDROmorphone HCL INJ 2 MG/ML VIAL IV ONE ×3 (11:55→12:15)
[2019-03-04] MEDS: PANTOPRAZOLE SODIUM IV 40 MG VIAL IV SCH (13:30)
[2019-03-04] MEDS: LACTATED RINGERS 1,000 ML IVS PRN (13:30)
[2019-03-04] MEDS: cefOXitin SODIUM 2 GM in SODIUM CHL 0.9% 50ML MIN-BAG+ 50 ML IVPB SCH ×2 (14:20→21:22)
[2019-03-04] MEDS ORDERED: PROMETHAZINE HCL INJ 25 MG in SODIUM CHLORIDE 0.9% 50ML 50 ML IVPB ONE (20:27)
[2019-03-04] MEDS ORDERED: METOCLOPRAMIDE HCL INJ 10 MG/2 ML VIAL IV ONE (20:29)
[2019-03-04] MEDS ORDERED: SODIUM CHLORIDE 0.9% 50ML 50 ML ONE (20:31)
[2019-03-05] MEDS: HYDROmorphone HCL INJ 2 MG/ML VIAL IV PRN ×4 (00:36→19:57)
[2019-03-05] MEDS: LACTATED RINGERS 1,000 ML IVS PRN ×3 (00:57→17:42)
[2019-03-05] MEDS ORDERED: SODIUM CHL 0.9% 50ML MIN-BAG+ 50 ML IVPB ONE (03:33)
[2019-03-05] MEDS ORDERED: cefOXitin SODIUM 2 GM INJ IVPB ONE (03:34)
[2019-03-05] MEDS: cefOXitin SODIUM 2 GM in SODIUM CHL 0.9% 50ML MIN-BAG+ 50 ML IVPB SCH (04:42)
[2019-03-05] MEDS: PANTOPRAZOLE SODIUM IV 40 MG VIAL IV SCH (06:04)
[2019-03-05] MEDS: ENOXAPARIN SODIUM 40 MG/0.4 ML SYG SUBCU SCH (08:31)
[2019-03-05] MEDS ORDERED: METOCLOPRAMIDE HCL INJ 10 MG/2 ML VIAL IV PRN (10:19)
[2019-03-05] MEDS ORDERED: PROMETHAZINE HCL INJ 25 MG/ML VIAL ONE ×2 (10:41→19:28)
[2019-03-05] MEDS ORDERED: SODIUM CHLORIDE 0.9% 50ML 50 ML ONE ×2 (10:42→19:29)
[2019-03-05] MEDS: KETOROLAC TROMETHAMINE INJ 30 MG/ML VIAL IV SCH ×2 (11:04→16:57)
[2019-03-05] MEDS: PROMETHAZINE HCL INJ 25 MG in SODIUM CHLORIDE 0.9% 50ML 50 ML IVPB PRN ×2 (11:05→19:34)
[2019-03-05] MEDS: ONDANSETRON INJ 4 MG/2 ML VIAL IV PRN (17:03)
[2019-03-06] MEDS: LACTATED RINGERS 1,000 ML IVS PRN (01:42)
[2019-03-06] MEDS: KETOROLAC TROMETHAMINE INJ 30 MG/ML VIAL IV SCH ×3 (02:06→18:43)
[2019-03-06] MEDS: PANTOPRAZOLE SODIUM IV 40 MG VIAL IV SCH (06:05)
[2019-03-06] MEDS: ENOXAPARIN SODIUM 40 MG/0.4 ML SYG SUBCU SCH (09:36)
[2019-03-06] MEDS ORDERED: MAGNESIUM HYDROXIDE 30 ML UD PO ONE (09:56)
[2019-03-06] MEDS ORDERED: SODIUM CHLORIDE 0.9% (FLUSH) 10 ML SYG IV PRN (10:14)
[2019-03-06] MEDS ORDERED: IV SET AND CAP CHANGE INJ INJ SCH (10:30)
[2019-03-06] MEDS: ONDANSETRON INJ 4 MG/2 ML VIAL IV PRN (11:56)
[2019-03-06] MEDS: ACETAMINOPHEN W/COD #3 TAB 1 EA TAB PO PRN (11:58)
[2019-03-06] MEDS ORDERED: PANTOPRAZOLE SODIUM TAB 40 MG PO ONE (19:05)
[2019-03-06] MEDS: SODIUM CHLORIDE 0.9% (FLUSH) 10 ML SYG IV SCH (20:34)
[2019-03-07] MEDS: LACTATED RINGERS 1,000 ML IVS PRN (02:01)
[2019-03-07] MEDS: KETOROLAC TROMETHAMINE INJ 30 MG/ML VIAL IV SCH ×2 (02:03→09:30)
[2019-03-07] MEDS: ACETAMINOPHEN W/COD #3 TAB 1 EA TAB PO PRN (05:28)
[2019-03-07] MEDS ORDERED: PROMETHAZINE HCL INJ 25 MG/ML VIAL ONE (05:31)
[2019-03-07] MEDS ORDERED: SODIUM CHLORIDE 0.9% 50ML 50 ML ONE (05:31)
[2019-03-07] MEDS: PROMETHAZINE HCL INJ 25 MG in SODIUM CHLORIDE 0.9% 50ML 50 ML IVPB PRN (05:37)
[2019-03-07] MEDS ORDERED: PANTOPRAZOLE SODIUM TAB 40 MG PO SCH (06:30)
[2019-03-07 09:29] VITALS: BP 120/82; TEMP 97.9; O2SAT 98
[2019-03-07] MEDS: SODIUM CHLORIDE 0.9% (FLUSH) 10 ML SYG IV SCH (09:29)
[2019-03-07] MEDS: ENOXAPARIN SODIUM 40 MG/0.4 ML SYG SUBCU SCH (09:30)
--- NOTE | 2019-03-07 20:50 | DS ---
FINAL DIAGNOSIS: 1. Recurrent diverticulitis with sigmoid stricture pending pathology report. SURGICAL PROCEDURE: The patient underwent exploratory laparotomy and sigmoid colectomy with low anterior resection and anastomosis. HISTORY OF PRESENT ILLNESS: The patient is a 57-year-old female who has had multiple episodes of diverticulitis and found to have a stricture in the sigmoid colon. She has been seen by Dr. Suggs and is said to have a history of ulcerative colitis. She is admitted today for a sigmoid and possible extended colectomy with primary anastomosis after an antibiotic and mechanical bowel prep as an outpatient. LABORATORY: On the day before discharge, the patient's potassium was 4.1, creatinine 0.58. Hemoglobin on the date of discharge was 11.4 with white count 9.2, 75% neutrophils and 257,000 platelets. Pathology is pending. HOSPITAL COURSE: The patient was admitted after a modified Coley bowel prep as an outpatient to the Operating Room where she underwent the procedure. Postoperatively the first postoperative day she was afebrile. Her urine output was adequate. She had a migraine headache which was treated by adding Phenergan to her pain medication. She continued to push fluid as her urine was somewhat concentrated. She finished her postoperative doses of antibiotics. She began to tolerated a clear liquid diet. Her Palacios catheter was discontinued and she was give a dose of Reglan for mild nausea. By the second postoperative day her urine output had become quite large. She was passing flatus and feeling better. She was advanced to a regular diet and give a dose of Milk of Magnesia. Overnight she had several bowel movements and by the third morning she did complain of a headache but otherwise was tolerating her diet, ambulating well and had showered without difficulty, and her incision looked quite good. PLAN: At that time she was discharged home. Condition on discharge was good. Prognosis is excellent pending her pathology report. She is discharged on a regular diet and told to push fluids. She was told to ambulate but do no lifting or exercise. Told she can shower but not tub bath. She is discharged with prescriptions for Tylenol #3 and Phenergan. She is to call my office for an appointment in 8 days. She knows to call me if she has problems with nausea, vomiting, fever, chills, wound drainage or has other questions or problems. #[id number] [facility]
== END 2019-03-07 11:51 | disposition home or self-care (01) | DRG 330 ==
LOC: AMB 05:24 → MS 12:50
PROVIDERS: ADMIT Surgery; ATTEND Surgery
PROC: 0D7P8ZZ Dilation of Rectum, Via Natural or Artificial Opening Endoscopic (ICD-10-PCS; 2019-03-04)
PROC: 0DBN0ZZ Excision of Sigmoid Colon, Open Approach (ICD-10-PCS; principal; 2019-03-04 08:14)
DX: K57.30 Diverticulosis of large intestine without perforation or abscess without bleeding (principal); K51.90 Ulcerative colitis, unspecified, without complications; K56.699 Other intestinal obstruction unspecified as to partial versus complete obstruction; G43.909 Migraine, unspecified, not intractable, without status migrainosus; E86.0 Dehydration; N73.6 Female pelvic peritoneal adhesions (postinfective); F31.9 Bipolar disorder, unspecified; Z79.1 Long term (current) use of non-steroidal anti-inflammatories (NSAID); Z79.891 Long term (current) use of opiate analgesic; Z88.5 Allergy status to narcotic agent; Z83.79 Family history of other diseases of the digestive system

== ENCOUNTER → 2019-03-31 | Outpatient (CLI) | payer OTHER ==
--- NOTE | 2019-04-01 11:53 | RAD ---
EXAM DESCRIPTION: Abdomen Flat Upright CLINICAL HISTORY: 58 years Female, RIGHT LOWER QUADRANT ABDOMAIN PAIN COMPARISON: 09/08/2018. TECHNIQUE: 2 views of the abdomen were performed. FINDINGS: Multiple air distended bowel loops are identified with no evidence of bowel obstruction. Moderate amount of fecal material is identified. Multiple pelvic phleboliths are identified. IMPRESSION: Constipation. No acute intra-abdominal process. Electronically signed by: Ayush Matthew MD 04/01/2019 11:51 AM [facility]
== END ==
LOC: RAD 11:23
PROVIDERS: ATTEND Surgery
DX: K59.00 Constipation, unspecified (principal)